=== PATIENT | female | born 2000 | race Caucasian/White ===

== ENCOUNTER 2024-08-07 21:39 | Emergency (ER) | payer MEDICAID ==
[~2024-08-07] VITALS: Ht 149.9 cm; Wt 68.0 kg
[2024-08-07 21:41] VITALS: TEMP 36.8; O2SAT 97
[2024-08-07 22:41] VITALS: TEMP 98.3
[2024-08-07] MEDS: ACETAMINOPHEN 500MG TABLET PO ONE (22:41)
[2024-08-07 23:46] VITALS: BP 104/59; PULSE 74; RESP 18; O2SAT 98
== END 2024-08-07 23:49 | disposition home or self-care (01) ==
LOC: ER 21:39
DX: O26.893 Other specified pregnancy related conditions, third trimester (principal); R10.9 Unspecified abdominal pain; Z3A.29 29 weeks gestation of pregnancy; Z59.71 Insufficient health insurance coverage
CPT/HCPCS: 76815; 99285